=== PATIENT | female | born 1965 | race Caucasian/White ===

== ENCOUNTER 2024-07-30 19:00 | Outpatient (CLI) | payer OTHER | END 2024-07-30 19:01 | disposition home or self-care (01) | LOC: CSHSLEEP 19:00 | PROVIDERS: ATTEND Registered Nurse | DX: G47.33 Obstructive sleep apnea (adult) (pediatric) (principal); R53.83 Other fatigue; R09.89 Other specified symptoms and signs involving the circulatory and respiratory systems; R51.9 Headache, unspecified; F32.A Depression, unspecified; K21.9 Gastro-esophageal reflux disease without esophagitis; E66.9 Obesity, unspecified; Z68.41 Body mass index [BMI] 40.0-44.9, adult; I10 Essential (primary) hypertension | CPT/HCPCS: 95811 ==